=== PATIENT | male | born 1955 | race Hispanic/Latino ===

== ENCOUNTER 2025-02-13 06:51 | Observation (INO) | payer OTHER ==
[~2025-02-13] VITALS: Ht 175.3 cm; Wt 154.0 kg
[~2025-02-13 06:51] MED LIST: HYDR25TA PO; METO-409 PO; ROSU20TA23 PO
[2025-02-13] MEDS: furoSEMIDE 40MG VIAL IV ONE (07:49)
--- NOTE | 2025-02-13 07:54 | EKG ---
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
[2025-02-13 08:05] LABS: BASOPHILS # (AUTO) 0.07 K/uL (0.00-0.20); BASOPHILS % (AUTO) 0.6 % (0.0-5.0); EOSINOPHILS # (AUTO) 0.22 K/uL (0.00-0.70); HEMATOCRIT 45.6 % (42-54); IMMATURE GRANULOCYTE ABSOLUTE 0.06 K/uL (0-1); LYMPHOCYTES # (AUTO) 2.3 K/uL (1.0-4.8); LYMPHOCYTES % (AUTO) 20.7 % (21.0-51.0); MEAN CORPUSCULAR HEMOGLOBIN 27.3 pg (27.0-33.0); MEAN CORPUSCULAR HGB CONC 31.8 g/dL (32.0-36.0); MEAN CORPUSCULAR VOLUME 85.7 fL (79-99); MONOCYTES # (AUTO) 0.6 K/uL (0.1-1.0); MONOCYTES % (AUTO) 5.3 % (3.0-13.0); NEUTROPHILS % (AUTO) 70.9 % (40.0-77.0); PLATELET COUNT (AUTO) 173 K/uL (130-400); RED BLOOD CELL COUNT(AUTO) 5.32 MIL/uL (4.50-6.20); RED CELL DISTRIBUTION WIDTH 13.3 % (11.0-15.5); WHITE BLOOD COUNT (AUTO) 11.2 K/uL (4.8-10.8)
[2025-02-13 08:24] LABS: CREATININE 0.9 mg/dL (0.5-1.3); POTASSIUM 3.8 mmol/L (3.5-5.1)
[2025-02-13 08:27] LABS: B-TYPE NATRIURETIC PEPTIDE 24 pg/mL (0-100)
[2025-02-13 08:28] LABS: ALBUMIN 3.3 g/dL (3.5-5.0); BILIRUBIN,DIRECT 0.1 mg/dL (0.0-0.3); BILIRUBIN,TOTAL 0.3 mg/dL (0.2-1.0); TOTAL PROTEIN, SERUM 7.5 g/dL (6.0-8.3)
--- NOTE | 2025-02-13 09:12 | HMCIMG ---
Exam Type: CHEST 1VW Clinical Information: cp Comparison: None Findings: The lungs are clear of infiltrates. The heart is normal in size. The bony and soft tissue structures of the chest are unremarkable. Impression: Clear lungs.
--- NOTE | 2025-02-13 10:11 | HMCIMG ---
Exam Type: US VENOUS DOPPLER BILATERAL Clinical Information: r/o DVT Comparison: None Findings: The examination shows normal deep venous system. There is normal compressibility at all levels. There is no intraluminal clot. There is no occlusion. Adequate response is obtained on augmentation. Impression: No evidence of DVT.
--- NOTE | 2025-02-13 11:22 | ERN ---
ED Note History of Present Illness Stated Complaint: SOB,CP Chief Complaint: Shortness of Breath Time Seen by MD: 07:18 Dictation: 69-year-old male presenting to the emergency department with chest pain and shortness a breath over the past few days. Patient reports chronic history of lower extremity swelling but it has been worsening. Allergies: Coded Allergies: No Known Drug Allergies (Unverified Allergy, Unknown, 06/24/15) Home Meds Reported Medications Hydrochlorothiazide (Hydrochlorothiazide) 25 Mg Tablet, 25 MG PO AM, TAB 06/24/15 Metoprolol Succinate (Metoprolol Succinate) 100 Mg Tab.er.24h, 100 MG PO AM, TAB 06/24/15 Rosuvastatin Calcium (Crestor) 20 Mg Tablet, 20 MG PO AM, TAB 06/24/15 Past Medical History Past Medical History: High Cholesterol, Hypertension Surgical History: Other Surgical History Other: HERNIA REPAIR Review of System Dictation Constitutional: Negative for fever,chills, and weight loss Eyes: Negative for injury, pain,redness, and discharge ENT: Negative for injury,pain or swelling Cardiovascular:per HPI Respiratory: per HPi Abdomen/GI: Negative for abdominal pain, nausea, vomiting, diarrhea, and constipation Back: Negative for injury and pain : Negative for injury, bleeding and discharge MS/Extremity: Negative for injury and deformity Skin: Negative for rash, and discoloration Neuro: Negative for headache, weakness, numbness, tingling, and seizure Initial Vital Sign VS Vital Signs Date Time Temp Pulse Resp B/P (MAP) Pulse Ox O2 Delivery O2 Flow Rate FiO2 02/13/25 06:53 98.4 88 20 180/85 97 Room Air 02/13/25 07:10 0 21 Physical Exam Dictation General: awake, alert, NAD Head/Face: Normocephalic, atraumatic Eyes: PERRL, EOMI, vision at baseline ENT: oral cavity clear, TMs clear, no signs of infection Neck: Trachea midline, supple, no nuchal rigidity Cardiovascular: RRR, normal S1/S2, No MRGs, no JVD, bilateral pitting edema noted to lower extremity Respiratory: CTAB, no respiratory distress, No rales or wheezes Abdomen: Soft, non-tender, non-distended, normal bowel sounds, no guarding or rebound. Skin: Warm, dry, normal turgor, no rash MS/Extremity: Pulses equal, no cyanosis, neurovascular intact, FROM Neuro: COAx4, GCS 15, strength 5/5, CN 2-12 intact, normal cerebellar exam, normal gait, Psych: Normal behavior, mood, and affect normal Results (Laboratory/Radiology) Laboratory/Radiology Laboratory Tests Test 02/13/25 07:45 White Blood Count 11.2 K/uL (4.8-10.8) H Red Blood Count 5.32 MIL/uL (4.50-6.20) Hemoglobin 14.5 g/dL (14.0-18.0) Hematocrit 45.6 % (42-54) Mean Corpuscular Volume 85.7 fL (79-99) Mean Corpuscular Hemoglobin 27.3 pg (27.0-33.0) Mean Corpuscular Hemoglobin Concent 31.8 g/dL (32.0-36.0) L Red Cell Distribution Width 13.3 % (11.0-15.5) Platelet Count 173 K/uL (130-400) Mean Platelet Volume 10.9 fL (7.5-10.5) H Immature Granulocyte % (Auto) 0.5 % (0-1) Neutrophils (%) (Auto) 70.9 % (40.0-77.0) Lymphocytes (%) (Auto) 20.7 % (21.0-51.0) L Monocytes (%) (Auto) 5.3 % (3.0-13.0) Eosinophils (%) (Auto) 2.0 % (0.0-8.0) Basophils (%) (Auto) 0.6 % (0.0-5.0) Neutrophils # (Auto) 8.0 K/uL (1.8-7.7) H Lymphocytes # (Auto) 2.3 K/uL (1.0-4.8) Monocytes # (Auto) 0.6 K/uL (0.1-1.0) Eosinophils # (Auto) 0.22 K/uL (0.00-0.70) Basophils # (Auto) 0.07 K/uL (0.00-0.20) Absolute Immature Granulocyte (auto 0.06 K/uL (0-1) Nucleated Red Blood Cells 0.0 % (0.0-0.19) Sodium Level 142 mmol/L (136-145) Potassium Level 3.8 mmol/L (3.5-5.1) Chloride Level 105 mmol/L (101-111) Carbon Dioxide Level 31 mmol/L (21-32) Blood Urea Nitrogen 14 mg/dL (7-18) Creatinine 0.9 mg/dL (0.5-1.3) Glomerular Filtration Rate Calc 94 mL/min (>90) Random Glucose 111 mg/dL (70-105) H Total Calcium 8.5 mg/dL (8.5-10.1) Total Bilirubin 0.3 mg/dL (0.2-1.0) Direct Bilirubin 0.1 mg/dL (0.0-0.3) Aspartate Amino Transf (AST/SGOT) 12 U/L (10-37) Alanine Aminotransferase (ALT/SGPT) 35 U/L (12-78) Alkaline Phosphatase 86 U/L (50-136) Troponin I High Sensitivity 6 ng/L (4-75) B-Type Natriuretic Peptide 24 pg/mL (0-100) Total Protein 7.5 g/dL (6.0-8.3) Albumin 3.3 g/dL (3.5-5.0) L Labs Reviewed?: Yes EKG Comment: Heart rate 82 normal sinus rhythm normal intervals no STEMI ED Course ED Course Orders Procedure Category Date Status Time 12 Lead Ekg Tracing- EKG 02/13/25 Resulted Technical 07:19 B-Type Natriuretic LAB 02/13/25 Complete Peptide 07:19 Basic Metabolic Panel LAB 02/13/25 Complete 07:19 Cbc With Differential LAB 02/13/25 Complete 07:19 Hepatic Function Panel LAB 02/13/25 Complete 07:19 Troponin I High LAB 02/13/25 Complete Sensitivity 07:19 Chest 1vw RAD 02/13/25 Resulted 07:19 Furosemide 40mg Vial PHA 02/13/25 Complete (Lasix 40mg Vial) 08:00 Us Venous Doppler US 02/13/25 Resulted Bilateral 07:36 Current Medications Medications (Trade) Dose Ordered Sig/Kaycee Route PRN Reason Start Time Stop Time Status Last Admin Dose Admin Furosemide (LASix 40MG VIAL) 40 mg ONCE ONCE IV 02/13/25 08:00 02/13/25 08:01 DC 02/13/25 07:49 Vital Signs Date Time Temp Pulse Resp B/P (MAP) Pulse Ox O2 Delivery O2 Flow Rate FiO2 02/13/25 08:15 98.6 84 18 144/92 97 Room Air* 0 21 02/13/25 07:10 98.6 81 18 163/103 98 Room Air* 0 21 02/13/25 06:53 98.4 88 20 180/85 97 Room Air HEART Score Response (Comments) Value History: High suspicion (+2) 2 Total 2 Medical Decision Making MDM MDM: Differential diagnosis: Rationale: Tests considered and ordered secondary to shared decision making include: labs, ECG and radiology Previous outside records reviewed: Old ER visits. Risk of complication and/or morbidity or mortality of patient management: None Medications-Per medication reconciliation Need for hospitalization: Patient does meet criteria for hospitalization. Need for emergency major/minor surgery: No There are no social concerns with this patient. Prescription drug management Prescriptions will include symptomatic care Patient's prior external medical records from other ER visits were reviewed by me as indicated. Prior testing and results from previous visits were reviewed. Prior tests were taken into account with medical decision making and resource utilization, independent historian/historians were used to obtain complete medical history. I independently interpreted the test that were performed, results were reviewed by me and considered findings on radiology if ordered. Medical management and examination interpretation discussions were had by me with other qualified healthcare professionals as indicated for the patient's care. 69-year-old male with CHF exacerbation concern for chest pain onset while angina admitting for further care and evaluation. DX & DISP Disposition: Inpatient Departure Impression: Primary Impression: CHF (congestive heart failure) Additional Impression: Unstable angina Condition: Stable Referrals: JONATHON FRAGA MD (PCP) NGOZI STEVE MD Feb 13, 2025 11:22
[2025-02-13] MEDS ORDERED: AMLO1CAP6 PO (11:53)
[2025-02-13] MEDS ORDERED: FURO20TA4 PO (11:53)
--- NOTE | 2025-02-13 11:59 | HP ---
[facility] Date of Service: Feb 13, 2025 Time of Service: 11:59 HISTORY OF PRESENT ILLNESS: Date of service: 02/13/2025, patient was seen in ER room 20 This is a 69-year-old male with underlying history of hypertension, chronic lower extremity edema, hyperlipidemia, severe morbid obesity, history of untreated sleep apnea, who presented to the ER after acute onset of shortness of breath. Patient states that he was sleeping in his recliner when he suddenly woke up gasping for air and it lasted for about a minute. Patient and also noticed that he has been having sharp left-sided chest pain that lasts for several seconds and goes away for about a week. It has been happening every 1-2 days. Patient states that he previously has seen Dr. Moreno with Cardiology 4 years ago and was recommended to have a stress test. Patient states that he did not undergo stress test due to financial reasons. Reports having be told he has sleep apnea but did not want to use CPAP machine and this was about four years ago. Daughter, present at bedside states that patient does have history of frequent snoring. Patient recently retired and has been mostly sedentary at home. Denies any previous history of NV or pulmonary comorbidities. Denies any significant alcohol intake or significant smoking. Labs [place] [address], hemoglobin 14.5, platelet count of 240065. BMP remarkable for sodium of 142, potassium 3.8, CO2 of 31, BUN of 14 , creatinine of 0.9, troponin of six, BNP of 24. Chest x-ray showed no significant infiltrates. Patient did receive IV dose of Lasix in the ER. Patient will be admitted for further evaluation of atypical chest pain. He will also undergo further evaluation of the shortness of breath. Consultation with Cardiology and pulmonology will be requested. One of the component of shortness of breadth can be also from untreated sleep apnea. Discussed with patient to see if he can get outpatient sleep study for CPAP therapy. Patient is morbidly obese and has multiple risk factors for coronary artery disease. We will also have Cardiology follow up. REVIEW OF SYSTEMS CONSTITUTIONAL: Denies fevers, chills, or night sweats. No unintentional weight loss reported. NEUROLOGICAL: Denies headache, amaurosis fugax, motor weakness, sensory deficit, vertigo/spinning sensation, gait abnormalities, or tremors. ENT: No hearing loss, otalgia, otorrhea, rhinitis, rhinorrhea, hoarseness, or sore throat. CARDIOVASCULAR: Sudden onset of shortness of breadth today, reports having sedentary lifestyle, add sharp chest pain for about a week that lasts for several seconds PULMONARY: Denies any shortness of breath, cough, phlegm/sputum, hemoptysis, pleuritic chest pain. SLEEP: Denies morning headaches, daytime somnolence or napping. Denies difficulty falling asleep, staying asleep, waking from sleep. Denies knowledge of snoring. GASTROINTESTINAL: Denies any type of dysphagia to either liquids or solids. Denies nausea, vomiting, pyrosis, early satiety, abdominal pain, diarrhea, constipation, or changes in stool consistency or caliber. Denies coffee-ground emesis, hematemesis, hematochezia, or melanotic stools. GENITOURINARY: Denies frequency, urgency, nocturia, hematuria or incontinence (Storage/Irritative symptoms.) Low urinary stream, straining to void, urinary intermittency or hesitancy, splitting of the voiding stream, terminal dribbling. ENDOCRINOLOGIC: Denies polyuria, polydipsia, polyphagia or heat/cold intolerances. HEMATOLOGIC: Denies thrombophilia/previous clots, or coagulopathy/bleeding disorders. ONCOLOGIC: Denies personal history of malignancy. DERMATOLOGIC: Denies rashes or pruritus. PSYCHIATRIC: Denies any suicidal or homicidal ideation. Denies hallucinations. PAST MEDICAL HISTORY: Obesity, untreated sleep apnea, hypertension, hyperlipidemia PAST SURGICAL HISTORY: Previous history of umbilical hernia surgery PAST SOCIAL HISTORY: Patient is currently retired, denies active smoking or alcohol consumption FAMILY HISTORY: Family history of NV in father at the age of 65 Coded Allergies: No Known Drug Allergies (Unverified Allergy, Unknown, 06/24/15) PHYSICAL EXAM GENERAL APPEARANCE: The patient is awake, alert, and oriented, in no acute cardiopulmonary distress. NEUROLOGICAL: Cranial nerves II-XII grossly intact. Motor is 5/5 in bilateral upper and lower extremities proximal to distal. No sensory deficits. HEENT: Face is symmetric. Pupils are equal and reactive. Extraocular movements are intact. NECK: Supple. No JVD. No thyromegaly. No submental, submandibular, pre-/postauricular, occipital or supraclavicular lymphadenopathy. CHEST: Normal chest expansion. No Telemetry. LUNGS: Absence of any rales, rhonchi or any wheezing. CARDIOVASCULAR: Regular. S1 and S2 normal. No appreciable rubs, murmurs or gallops. ABDOMEN: Soft, nontender, and nondistended. There is no rebound, voluntary guarding, or rigidity. : Deferred. No Knott. EXTREMITIES: Non-edematous and not cyanotic. No clubbing. Good capillary refill. SKIN: No skin breakdown. Vital Sign (Last 24 Hours) 02/13/25 08:15 Temp 98.6 Pulse 84 Resp 18 B/P (MAP) 144/92 Pulse Ox 97 O2 Delivery Room Air* O2 Flow Rate 0 FiO2 21 LABS: Laboratory: Test 02/13/25 07:45 Range/Units White Blood Count 11.2 H 4.8-10.8 K/uL Red Blood Count 5.32 4.50-6.20 MIL/uL Hemoglobin 14.5 14.0-18.0 g/dL Hematocrit 45.6 42-54 % Mean Corpuscular Volume 85.7 79-99 fL Mean Corpuscular Hemoglobin 27.3 27.0-33.0 pg Mean Corpuscular Hemoglobin Concent 31.8 L 32.0-36.0 g/dL Red Cell Distribution Width 13.3 11.0-15.5 % Platelet Count 173 130-400 K/uL Mean Platelet Volume 10.9 H 7.5-10.5 fL Immature Granulocyte % (Auto) 0.5 0-1 % Neutrophils (%) (Auto) 70.9 40.0-77.0 % Lymphocytes (%) (Auto) 20.7 L 21.0-51.0 % Monocytes (%) (Auto) 5.3 3.0-13.0 % Eosinophils (%) (Auto) 2.0 0.0-8.0 % Basophils (%) (Auto) 0.6 0.0-5.0 % Neutrophils # (Auto) 8.0 H 1.8-7.7 K/uL Lymphocytes # (Auto) 2.3 1.0-4.8 K/uL Monocytes # (Auto) 0.6 0.1-1.0 K/uL Eosinophils # (Auto) 0.22 0.00-0.70 K/uL Basophils # (Auto) 0.07 0.00-0.20 K/uL Absolute Immature Granulocyte (auto 0.06 0-1 K/uL Nucleated Red Blood Cells 0.0 0.0-0.19 % Sodium Level 142 136-145 mmol/L Potassium Level 3.8 3.5-5.1 mmol/L Chloride Level 105 101-111 mmol/L Carbon Dioxide Level 31 21-32 mmol/L Blood Urea Nitrogen 14 7-18 mg/dL Creatinine 0.9 0.5-1.3 mg/dL Glomerular Filtration Rate Calc 94 >90 mL/min Random Glucose 111 H 70-105 mg/dL Total Calcium 8.5 8.5-10.1 mg/dL Total Bilirubin 0.3 0.2-1.0 mg/dL Direct Bilirubin 0.1 0.0-0.3 mg/dL Aspartate Amino Transf (AST/SGOT) 12 10-37 U/L Alanine Aminotransferase (ALT/SGPT) 35 12-78 U/L Alkaline Phosphatase 86 50-136 U/L Troponin I High Sensitivity 6 4-75 ng/L B-Type Natriuretic Peptide 24 0-100 pg/mL Total Protein 7.5 6.0-8.3 g/dL Albumin 3.3 L 3.5-5.0 g/dL Current Medications Medications (Trade) Dose Ordered Sig/Kaycee Route PRN Reason Start Time Stop Time Status Last Admin Dose Admin Acetaminophen (TYLenol 325MG TAB) 650 mg Q6H PRN PO MILD PAIN (1-3) 02/13/25 12:00 03/15/25 11:59 UNV Budesonide (Pulmicort 0.5 Mg/2ml) 0.5 mg BIDRESP IH 02/13/25 18:00 03/15/25 17:59 UNV Budesonide (Pulmicort 0.5 Mg/2ml) 0.5 mg BIDRESP IH 02/13/25 18:00 03/15/25 17:59 UNV Ipratropium Wadley (AtrovENT UD) 0.5 mg Q6H PRN IH SHORTNESS OF BREATH 02/13/25 12:00 03/15/25 11:59 UNV Ondansetron HCl (zoFRAN 4MG INJ) 4 mg Q6H PRN IVP NAUSEA/VOMITING 02/13/25 12:00 03/15/25 11:59 UNV Potassium Chloride 100 ml @ 100 mls/hr AD PRN IV POTASSIUM PROTOCOL 02/13/25 12:00 03/15/25 11:59 UNV Potassium Chloride (K-Dur/Klor-Con 20meq) 20 meq AD PRN PO POTASSIUM PROTOCOL 02/13/25 12:00 03/15/25 11:59 UNV Potassium Chloride (KCl 10% Elixir 20meq/15ml) 20 meq AD PRN PO POTASSIUM PROTOCOL 02/13/25 12:00 03/15/25 11:59 UNV DIAGNOSTICS / RADIOLOGY: SERVICE [id number] REASON: cp ORDERING PHYSICIAN: NGOZI STEVE MD PROCEDURE: CXR1VW - CHEST 1VW Exam Type: CHEST 1VW Clinical Information: cp Comparison: None Findings: The lungs are clear of infiltrates. The heart is normal in size. The bony and soft tissue structures of the chest are unremarkable. Impression: Clear lungs. DICTATED BY: JANN CAI MD DATE: 02/13/25 0909 ELECTRONICALLY SIGNED BY: JANN CAI MD DATE: 02/13/25 0912 SERVICE [id number] REASON: r/o DVT ORDERING PHYSICIAN: NGOZI STEVE MD PROCEDURE: VENOUS ARIANA - US VENOUS DOPPLER BILATERAL Exam Type: US VENOUS DOPPLER BILATERAL Clinical Information: r/o DVT Comparison: None Findings: The examination shows normal deep venous system. There is normal compressibility at all levels. There is no intraluminal clot. There is no occlusion. Adequate response is obtained on augmentation. Impression: No evidence of DVT. DICTATED BY: JANN CAI MD DATE: 02/13/25 1008 ELECTRONICALLY SIGNED BY: JANN CAI MD DATE: 02/13/25 1011 ASSESSMENT: Atypical chest pain, POA Sudden onset shortness of breath, POA Untreated obstructive sleep apnea with episodes of apnea, POA Morbid obesity, POA Hypertension, POA Hyperlipidemia, POA Mild leukocytosis, POA Bilateral chronic lower extremity edema, POA PLAN: Patient will be admitted to cardiac telemetry floor We will monitor cardiac panel to rule out ACS Consultation with Cardiology will be requested Consultation with pulmonology will be requested, patient has uncontrolled sleep apnea with apneic episodes as well, we will consider starting CPAP therapy while inpatient We will obtain 2D echocardiogram to assess LVEF, patient has a history of chronic lower extremity edema, he received a dose of IV Lasix in the ER, we will rule out heart failure and any significant cardiac valvulopathy We will obtain D-dimer testing to assess probability of PE, if significantly elevated, will consider CT PE as well, will have Pulmonology follow up Patient does take amlodipine at home which can cause chronic lower extremity edema, we will stop the amlodipine for now, we will keep patient on benazepril 20 mg daily We will maintain potassium greater than four and magnesium greater than two All labs will be repeated in the morning I have spoken with Dr. Moreno with Cardiology in detail, recommendations is to do a stress test for tomorrow morning, he also recommends CT PE protocol to rule out PE given underlying obesity and lower extremity edema and mildly elevated D- dimer, orders have been placed by me Patient will need to be setup for outpatient sleep study for evaluation and management of sleep apnea Plan of care was discussed with patient and daughter at bedside, Cornell Burkett MD Advanced Care Planning: Which of the following were discussed: Hospice care: Yes __ No _X_ Therapeutic options: Yes _X_ No __ Advance directives: Yes _X_ No __ Other discussions: Discussed with who?: Patient Voluntary nature of this service was explained to the patient? Yes _x_ No __ Amount of time spent: 20 minutes CORNELL BURKETT MD Feb 13, 2025 11:59
[2025-02-13] MEDS ORDERED: IpraTROPium 0.5 MG/2.5 ML INH IH PRN (12:00)
[2025-02-13] MEDS ORDERED: PoTASSium chloRIDE 20MEQ/100ML 100 ML IV PRN (12:00)
[2025-02-13] MEDS ORDERED: PoTASSium chl 10% ELIXIR 20MEQ 20 MEQ/15 ML UDCUP PO PRN (12:00)
[2025-02-13] MEDS ORDERED: PoTASSium chloRIDE 20MEQ ER 20 MEQ ERTAB PO PRN (12:00)
[2025-02-13] MEDS ORDERED: acetaMINOPHEN 325 MG TAB PO PRN (12:00)
[2025-02-13] MEDS ORDERED: ondanSETRON 4MG INJ IVP PRN (12:00)
[2025-02-13 12:45] LABS: INR 0.99 (0.85-1.15); PROTHROMBIN TIME 10.5 SEC (9.6-11.6)
[2025-02-13 12:45] LABS: SARS-CoV-2, RNA, NAAT NEGATIVE SARS CoV-2 (NEGATIVE)
[2025-02-13 12:47] LABS: PARTIAL THROMBOPLASTIN TIME 27.2 SEC (26.3-35.5)
[2025-02-13 12:52] LABS: INFLUENZA TYPE A Negative For Type A (NEGATIVE); INFLUENZA TYPE B Negative For Type B (NEGATIVE)
[2025-02-13] MEDS: beNAZEPril HCL 10 MG TABLET PO SCH (13:42)
[2025-02-13 14:02] LABS: CREATINE KINASE, TOTAL 223 U/L (21-232)
[2025-02-13 14:29] VITALS: PULSE 86; RESP 18; O2SAT 98
--- NOTE | 2025-02-13 14:52 | NUR ---
DCP: HOME Pt currently lives with Fany Weaver [phone]. Pt does not have any insecurities with food, mcfp, and/or utilities. Pt does not have DME, home health, or provider services. Pt is able to complete ADLs independently. PCP is Dr. Bola Castro and uses [facility] with any RX needs. At [place] pt will go home and family will assist with transportation. Addendum: 02/13/25 at 1455 by DK FRENCH SS Amended: Links added.
[2025-02-13] MEDS ORDERED: BUDESONIDE 0.5 MG/2 ML INH IH SCH (18:00)
[2025-02-13 19:55] VITALS: PULSE 90; RESP 20; O2SAT 98
[2025-02-13] MEDS: BUDESONIDE 0.5 MG/2 ML INH IH SCH (19:55)
[2025-02-13] MEDS: atorVAStatin 40 MG TABLET PO SCH (19:58)
[2025-02-13] MEDS ORDERED: IOHEXOL-350 75 ML VIAL IV ONE (20:16)
--- NOTE | 2025-02-13 20:18 | NUR ---
Pt to CT via wheelchair at this time on room air.
--- NOTE | 2025-02-13 20:40 | NUR ---
Handoff report to [facility] RN Eva. Plan of care reviewed; questions and concerns addressed.
--- NOTE | 2025-02-13 20:41 | HMCIMG ---
CT angiogram chest CLINICAL INDICATION: ELEVATED D-DIMER SOB, AND ATYPICAL CHEST PAIN X 1 WEEK COMPARISON: None. CT Dose Index (CTDI): 113.50 mGy Dose Length Product (DLP): 1408.10 total mGy PROTOCOL: Contrast: 100 cc of Isovue-370, injected IV, no complications Examination is done at 2.5 millimeter volumetric acquisition after contrast administration. Photography is done at 5 millimeter thick intervals for the thorax. FINDINGS: There is no evidence of pulmonary embolism. The airway is intact. The trachea and major bronchi are unremarkable. No pulmonary infiltrates or mass lesions are seen. No pleural effusions are identified. The exam of the katalina and mediastinum is unremarkable. No evidence of hilar enlargement is seen. The aorta shows no aneurysmal dilatation or significant atheromatous calcification. There is no thoracic aortic dissection. No significant brachiocephalic vascular abnormalities are seen. The heart is unremarkable. It is not enlarged. No significant coronary arterial calcifications are seen. There is no pericardial effusion. The rib cage appears unremarkable. The soft tissues of the chest wall are unremarkable. The dorsal spine shows no significant abnormalities. Limited evaluation of the upper abdomen demonstrates no gross abnormalities. IMPRESSION: No evidence of pulmonary embolism. Clear lungs. This study was performed using dose reduction techniques to include automated exposure control and/or adjustment of the mA and/or kV according to patient size.
--- NOTE | 2025-02-13 21:00 | CONS ---
[facility] CONSULTATION NOTE Date Patient Seen: Feb 13, 2025 Time of Visit: 20:54 Supervising Physician: Dr. Akers Reason for Consultation: Untreated JOSELUIS/OHS. Primary Care Physician: Dr. Bola Castro Outpatient Specialists: [ ] Inpatient Consults: [ ] PROBLEM LIST: Acute onset respiratory failure, POA Elevated D-dimer r/o PE Atypical chest pain, POA Untreated obstructive sleep apnea/obesity hypoventilation syndrome with episodes of apnea, POA Hypertension, POA Hyperlipidemia, POA Mild leukocytosis, POA Bilateral chronic lower extremity edema, POA Morbid obesity, POA] HPI: This is a 69-year-old male patient who has past medical history that is sig nificant for hypertension, chronic lower extremity edema, hyperlipidemia, severe morbid obesity and untreated sleep apnea. The patient presented to the emergency department with complaint of shortness of bed. With sudden onset last night. Based on the report, the patient was sleeping in his recliner when he suddenly woke up gasping for air and then had difficulty returning to sleep. He also complaint of chest pain that has been off and on over the past week. Because of the sudden onset shortness of breath and chest pain, the patient decided to come into the emergency department for further evaluation and management of his condition. Upon initial workup in the emergency department, laboratory [place] [address], hemoglobin 14.5, platelet count of [id number], sodium of 142, potassium 3.8, CO2 of 31, BUN of 14 , creatinine of 0.9, troponin of six, BNP of 24. D-dimer 536, no coagulopathy. Influenza A&B and SARS-CoV-2 were negative. Chest x-ray showed no significant infiltrates. In the emergency department, the patient was treated with IV Lasix and based on the findings the patient was admitted for further inpatient evaluation and management of his condition. At the time of my visit, the patient remained in the emergency department awaiting bed assignment. During my visit, the senior technical writer was present at the bedside performing the study. PAST MEDICAL HX: see above PAST SURGICAL HX: noncontributory SOCIAL HISTORY: No tobacco, ETOH, or illicit drug use Coded Allergies: No Known Drug Allergies (Unverified Allergy, Unknown, 06/24/15) REVIEW OF SYSTEMS: 12 point ROS reviewed with patient. Pertinent positives mentioned above. Otherwise negative. PHYSICAL EXAM: GENERAL: Alert, weak, awake oriented x 3. Morbidly obese HEENT: EOMI, Sclera non icteric, moist mucosa NECK: Supple, no JVD, trachea midline LUNGS: Clear breath sounds bilaterally. No wheezes HEART: Regular rate and rhythm. Normal S1 and S2, without murmurs ABD: Abdomen soft, nontender. Bowel sounds present EXT: No clubbing cyanosis or edema NEURO: Alert and oriented to person, follows commands Vital Signs (last 8hr) Date Time Temp Pulse Resp B/P (MAP) Pulse Ox O2 Delivery O2 Flow Rate FiO2 02/13/25 20:19 98.8 91 16 157/82 96 Room Air* 0 21 02/13/25 19:55 90 20 02/13/25 19:55 90 20 N/A Room Air 02/13/25 14:30 98.2 79 18 128/79 97 Room Air* 0 21 02/13/25 14:29 86 18 N/A Room Air 02/13/25 13:15 98.2 85 18 157/77 97 Room Air* 0 21 LABS: Hematology Labs: Test 02/13/25 18:14 02/13/25 07:45 Range/Units Erythrocyte Sedimentation Rate 18 0-20 MM/HR White Blood Count 11.2 H 4.8-10.8 K/uL Red Blood Count 5.32 4.50-6.20 MIL/uL Hemoglobin 14.5 14.0-18.0 g/dL Hematocrit 45.6 42-54 % Mean Corpuscular Volume 85.7 79-99 fL Mean Corpuscular Hemoglobin 27.3 27.0-33.0 pg Mean Corpuscular Hemoglobin Concent 31.8 L 32.0-36.0 g/dL Red Cell Distribution Width 13.3 11.0-15.5 % Platelet Count 173 130-400 K/uL Mean Platelet Volume 10.9 H 7.5-10.5 fL Immature Granulocyte % (Auto) 0.5 0-1 % Neutrophils (%) (Auto) 70.9 40.0-77.0 % Lymphocytes (%) (Auto) 20.7 L 21.0-51.0 % Monocytes (%) (Auto) 5.3 3.0-13.0 % Eosinophils (%) (Auto) 2.0 0.0-8.0 % Basophils (%) (Auto) 0.6 0.0-5.0 % Neutrophils # (Auto) 8.0 H 1.8-7.7 K/uL Lymphocytes # (Auto) 2.3 1.0-4.8 K/uL Monocytes # (Auto) 0.6 0.1-1.0 K/uL Eosinophils # (Auto) 0.22 0.00-0.70 K/uL Basophils # (Auto) 0.07 0.00-0.20 K/uL Absolute Immature Granulocyte (auto 0.06 0-1 K/uL Nucleated Red Blood Cells 0.0 0.0-0.19 % Chemistry Labs: Test 02/13/25 18:14 02/13/25 07:45 Range/Units Total Creatine Kinase 112 # 21-232 U/L Troponin I High Sensitivity 5.2 4-75 ng/L C-Reactive Protein, Quantitative 6.10 H 0.5-3.0 mg/L Procalcitonin < 0.05 L 0.05-0.5 ng/mL Sodium Level 142 136-145 mmol/L Potassium Level 3.8 3.5-5.1 mmol/L Chloride Level 105 101-111 mmol/L Carbon Dioxide Level 31 21-32 mmol/L Blood Urea Nitrogen 14 7-18 mg/dL Creatinine 0.9 0.5-1.3 mg/dL Glomerular Filtration Rate Calc 94 >90 mL/min Random Glucose 111 H 70-105 mg/dL Total Calcium 8.5 8.5-10.1 mg/dL Magnesium Level 2.10 1.80-2.40 mg/dL Total Bilirubin 0.3 0.2-1.0 mg/dL Direct Bilirubin 0.1 0.0-0.3 mg/dL Aspartate Amino Transf (AST/SGOT) 12 10-37 U/L Alanine Aminotransferase (ALT/SGPT) 35 12-78 U/L Alkaline Phosphatase 86 50-136 U/L B-Type Natriuretic Peptide 24 0-100 pg/mL Total Protein 7.5 6.0-8.3 g/dL Albumin 3.3 L 3.5-5.0 g/dL Coagulation Labs: Test 02/13/25 07:45 Range/Units Prothrombin Time 10.5 9.6-11.6 SEC Prothromb Time International Ratio 0.99 0.85-1.15 Activated Partial Thromboplast Time 27.2 26.3-35.5 SEC D-Dimer Quantitative (PE/DVT) 536 *H 0-500 ng/mL DIAGNOSTICS / RADIOLOGY RESULTS: [ ] PLAN Pulmonology consultation was requested due to concern for untreated JOSELUIS/OHS. I am going to start the patient on CPAP at HS with inspiratory pressure 10 cm H2O and 40% FiO2. Because of the sudden onset respiratory distress and a minimally elevated D-dimer, we will request a CT of the chest PE protocol if not yet requested. We will await the 2D echo results. Cardiology was consulted and we will follow their input on further management. We will monitor the patient's progress and response to management. I discussed the findings and plan for further management with the patient. We will monitor the patient's progress and response to management. We will continue to provide general supportive care, GI and DVT prophylaxis. I appreciate the opportunity provided to participate in patient's care. Further orders per attending MD and hospital course. NEURO: Minimize central acting medications as possible. Maintain fall precautions, adequate lighting during the day PULMONARY: Supplemental 02 as needed. Maintain aspiration precautions at all times CARDIOVASCULAR: Follow hemodynamics. Vital signs per facility protocol GI & NUTRITION: Continue with nutritional support. Continue stool softeners and laxatives as needed. KIDNEYS & ELECTROLYTES: Strict monitoring of intake, output and overall fluid balance. Avoid nephrotoxic medications to the extent possible. Medications to be dosed according to renal function. Monitor electrolytes and replace as needed ENDOCRINE: Maintain blood glucose between 100-180 at all times. Hypoglycemia protocol in place INFECTIOUS DISEASE: Trend temperature, WBC and procalcitonin level Follow cultures, deescalate antibiotics as soon as possible. Panculture if new onset fever ONCOLOGY/HEMATOLOGY/COAGULATION: Monitor for s/s of bleeding Monitor hemoglobin, coagulation studies as needed SKIN: Pressure ulcer prevention per facility protocol Specialty mattress ORTHO/REHAB: Continue PT/OT Prophylaxis: Continue GI and DVT prophylaxis Code Status: Full Resuscitation Disposition: TBD Other: Patient was seen and case discussed with kenney HECTOR. Plan of care was discussed and agreed upon. SALLY GARCIA NP Feb 13, 2025 21:00
[2025-02-13 21:34] VITALS: BP 149/76; PULSE 90; RESP 20; TEMP 98.4
[2025-02-13 23:24] VITALS: O2SAT 97
[2025-02-13 23:30] VITALS: BP 168/73; PULSE 85; RESP 18; TEMP 98.4
[2025-02-14] VITALS (16 sets, daily range): BP systolic 132–152; BP diastolic 69–85; PULSE 50–91; RESP 16–24; TEMP 97.4–98.2; O2SAT 96–100
[2025-02-14 04:27] LABS: BASOPHILS # (AUTO) 0.09 K/uL (0.00-0.20); BASOPHILS % (AUTO) 0.7 % (0.0-5.0); EOSINOPHILS % (AUTO) 2.4 % (0.0-8.0); IMMATURE GRANULOCYTE ABSOLUTE 0.06 K/uL (0-1); LYMPHOCYTES # (AUTO) 2.5 K/uL (1.0-4.8); LYMPHOCYTES % (AUTO) 19.8 % (21.0-51.0); MEAN CORPUSCULAR HGB CONC 31.1 g/dL (32.0-36.0); MEAN CORPUSCULAR VOLUME 86.9 fL (79-99); MONOCYTES # (AUTO) 0.8 K/uL (0.1-1.0); MONOCYTES % (AUTO) 6.2 % (3.0-13.0); NEUTROPHILS # (AUTO) 8.7 K/uL (1.8-7.7); NEUTROPHILS % (AUTO) 70.4 % (40.0-77.0); PLATELET COUNT (AUTO) 172 K/uL (130-400); RED BLOOD CELL COUNT(AUTO) 5.18 MIL/uL (4.50-6.20); RED CELL DISTRIBUTION WIDTH 13.3 % (11.0-15.5); WHITE BLOOD COUNT (AUTO) 12.4 K/uL (4.8-10.8)
[2025-02-14 04:49] LABS: ALBUMIN 3.3 g/dL (3.5-5.0); BILIRUBIN,TOTAL 0.4 mg/dL (0.2-1.0); CREATININE 0.9 mg/dL (0.5-1.3); MAGNESIUM 2.2 mg/dL (1.80-2.40); POTASSIUM 3.8 mmol/L (3.5-5.1); TOTAL PROTEIN, SERUM 7.4 g/dL (6.0-8.3)
--- NOTE | 2025-02-14 10:40 | PN ---
[facility] PROGRESS NOTE Date of Service: Feb 14, 2025 Time of Service: 10:36 SUBJECTIVE: This is a 69-year-old male with underlying history of hypertension, chronic lower extremity edema, hyperlipidemia, severe morbid obesity, history of untreated sleep apnea, who presented to the ER after acute onset of shortness of breath. Patient stated that he was sleeping in his recliner when he suddenly woke up gasping for air and it lasted for about a minute. Patient also noticed that he has been having sharp left-sided chest pain that lasts for several seconds and goes away for about a week. It has been happening every 1-2 days. Patient stated that he previously has seen Dr. Moreno with Cardiology for years and was recommended to have a stress test. Patient stated that he did not undergo stress test due to financial reasons. Reports having be told he has sleep apnea but did not want to use CPAP machine and this was about four years ago. Denied any previous history of [place] or pulmonary comorbidities. Denied any sig nificant alcohol intake or significant smoking. Labs [place] [address], hemoglobin 14.5, platelet count of 783116. BMP remarkable for sodium of 142, potassium 3.8, CO2 of 31, BUN of 14 , creatinine of 0.9, troponin of six, BNP of 24. Chest x-ray showed no significant infiltrates. Patient did receive IV dose of Lasix in the ER. Patient admitted for further evaluation of atypical chest pain. 02/14 patient remains in the PCU, comfortably in bed, alert oriented x3, denied chest pain, no shortness a breath, no nausea, no vomiting. Today BP 150/79, afebrile, saturating 100% room air, hemoglobin 14.0, hematocrit 45.0, platelet count of 172, WBC 12.4. CMP is unremarkable. Doppler of the lower extremities no evidence of DVT. CT chest no evidence of pulmonary embolism, clear lungs, echocardiogram pending report, Lexiscan stress test pending. REVIEW OF SYSTEMS CONSTITUTIONAL: Denies fevers, chills, or night sweats. No unintentional weight loss reported. NEUROLOGICAL: Denies headache, amaurosis fugax, motor weakness, sensory deficit, vertigo/spinning sensation, gait abnormalities, or tremors. ENT: No hearing loss, otalgia, otorrhea, rhinitis, rhinorrhea, hoarseness, or sore throat. CARDIOVASCULAR: Sudden onset of shortness of breadth today, reports having sedentary lifestyle, add sharp chest pain for about a week that lasts for several seconds PULMONARY: Denies any shortness of breath, cough, phlegm/sputum, hemoptysis, pleuritic chest pain. SLEEP: Denies morning headaches, daytime somnolence or napping. Denies difficulty falling asleep, staying asleep, waking from sleep. Denies knowledge of snoring. GASTROINTESTINAL: Denies any type of dysphagia to either liquids or solids. Denies nausea, vomiting, pyrosis, early satiety, abdominal pain, diarrhea, constipation, or changes in stool consistency or caliber. Denies coffee-ground emesis, hematemesis, hematochezia, or melanotic stools. GENITOURINARY: Denies frequency, urgency, nocturia, hematuria or incontinence (Storage/Irritative symptoms.) Low urinary stream, straining to void, urinary intermittency or hesitancy, splitting of the voiding stream, terminal dribbling. ENDOCRINOLOGIC: Denies polyuria, polydipsia, polyphagia or heat/cold intolerances. HEMATOLOGIC: Denies thrombophilia/previous clots, or coagulopathy/bleeding disorders. ONCOLOGIC: Denies personal history of malignancy. DERMATOLOGIC: Denies rashes or pruritus. PSYCHIATRIC: Denies any suicidal or homicidal ideation. Denies hallucinations. PHYSICAL EXAM GENERAL APPEARANCE: The patient is awake, alert, and oriented, in no acute cardiopulmonary distress. NEUROLOGICAL: Cranial nerves II-XII grossly intact. Motor is 5/5 in bilateral upper and lower extremities proximal to distal. No sensory deficits. HEENT: Face is symmetric. Pupils are equal and reactive. Extraocular movements are intact. NECK: Supple. No JVD. No thyromegaly. No submental, submandibular, pre- /postauricular, occipital or supraclavicular lymphadenopathy. CHEST: Normal chest expansion. No Telemetry. LUNGS: Absence of any rales, rhonchi or any wheezing. CARDIOVASCULAR: Regular. S1 and S2 normal. No appreciable rubs, murmurs or gallops. ABDOMEN: Soft, nontender, and nondistended. There is no rebound, voluntary guarding, or rigidity. : Deferred. No Knott. EXTREMITIES: Non-edematous and not cyanotic. No clubbing. Good capillary refill. SKIN: No skin breakdown. Vital Signs (last 8hr) Date Time Temp Pulse Resp B/P (MAP) Pulse Ox O2 Delivery O2 Flow Rate FiO2 02/14/25 07:51 97.3 89 18 150/79 100 Room Air 02/14/25 06:33 89 24 35 02/14/25 06:32 88 22 02/14/25 04:22 98.1 72 18 145/78 100 BIPAP 02/14/25 04:10 72 16 35 LABS: Laboratory: Test 02/14/25 04:05 02/13/25 18:14 02/13/25 12:16 02/13/25 07:45 Range/Units White Blood Count 12.4 H 4.8-10.8 K/uL Red Blood Count 5.18 4.50-6.20 MIL/uL Hemoglobin 14.0 14.0-18.0 g/dL Hematocrit 45.0 42-54 % Mean Corpuscular Volume 86.9 79-99 fL Mean Corpuscular Hemoglobin 27.0 27.0-33.0 pg Mean Corpuscular Hemoglobin Concent 31.1 L 32.0-36.0 g/dL Red Cell Distribution Width 13.3 11.0-15.5 % Platelet Count 172 130-400 K/uL Mean Platelet Volume 11.0 H 7.5-10.5 fL Immature Granulocyte % (Auto) 0.5 0-1 % Neutrophils (%) (Auto) 70.4 40.0-77.0 % Lymphocytes (%) (Auto) 19.8 L 21.0-51.0 % Monocytes (%) (Auto) 6.2 3.0-13.0 % Eosinophils (%) (Auto) 2.4 0.0-8.0 % Basophils (%) (Auto) 0.7 0.0-5.0 % Neutrophils # (Auto) 8.7 H 1.8-7.7 K/uL Lymphocytes # (Auto) 2.5 1.0-4.8 K/uL Monocytes # (Auto) 0.8 0.1-1.0 K/uL Eosinophils # (Auto) 0.30 0.00-0.70 K/uL Basophils # (Auto) 0.09 0.00-0.20 K/uL Absolute Immature Granulocyte (auto 0.06 0-1 K/uL Nucleated Red Blood Cells 0.0 0.0-0.19 % Sodium Level 141 136-145 mmol/L Potassium Level 3.8 3.5-5.1 mmol/L Chloride Level 105 101-111 mmol/L Carbon Dioxide Level 30 21-32 mmol/L Blood Urea Nitrogen 14 7-18 mg/dL Creatinine 0.9 0.5-1.3 mg/dL Glomerular Filtration Rate Calc 94 >90 mL/min Random Glucose 118 H 70-105 mg/dL Total Calcium 8.4 L 8.5-10.1 mg/dL Magnesium Level 2.20 1.80-2.40 mg/dL Total Bilirubin 0.4 # 0.2-1.0 mg/dL Aspartate Amino Transf (AST/SGOT) 14 10-37 U/L Alanine Aminotransferase (ALT/SGPT) 35 12-78 U/L Alkaline Phosphatase 84 50-136 U/L Total Protein 7.4 6.0-8.3 g/dL Albumin 3.3 L 3.5-5.0 g/dL Erythrocyte Sedimentation Rate 18 0-20 MM/HR Total Creatine Kinase 112 # 21-232 U/L Troponin I High Sensitivity 5.2 4-75 ng/L C-Reactive Protein, Quantitative 6.10 H 0.5-3.0 mg/L Procalcitonin < 0.05 L 0.05-0.5 ng/mL Influenza Type A Antigen Negative For Type A NEGATIVE Influenza Type B Antigen Negative For Type B NEGATIVE SARS-CoV-2, RNA, NAAT NEGATIVE SARS CoV-2 NEGATIVE Prothrombin Time 10.5 9.6-11.6 SEC Prothromb Time International Ratio 0.99 0.85-1.15 Activated Partial Thromboplast Time 27.2 26.3-35.5 SEC D-Dimer Quantitative (PE/DVT) 536 *H 0-500 ng/mL Direct Bilirubin 0.1 0.0-0.3 mg/dL B-Type Natriuretic Peptide 24 0-100 pg/mL Current Medications Medications (Trade) Dose Ordered Sig/Kaycee Route PRN Reason Start Time Stop Time Status Last Admin Dose Admin Acetaminophen (TYLenol 325MG TAB) 650 mg Q6H PRN PO MILD PAIN (1-3) 02/13/25 12:00 03/15/25 11:59 Atorvastatin Calcium (LIPItor 40MG) 80 mg HS PO 02/13/25 21:00 03/15/25 20:59 6/12/25 19:58 80 MG Benazepril HCl (LoTENSin) 20 mg Q24H PO 02/13/25 13:00 03/15/25 12:59 02/13/25 13:42 20 MG Budesonide (Pulmicort 0.5 Mg/2ml) 0.5 mg BIDRESP IH 02/13/25 18:00 02/13/25 12:10 DC Budesonide (Pulmicort 0.5 Mg/2ml) 0.5 mg BIDRESP IH 02/13/25 18:00 03/15/25 17:59 02/14/25 06:37 0.5 MG Enoxaparin Sodium (Lovenox) 40 mg DAILY SQ 02/14/25 09:00 03/16/25 08:59 Furosemide (LASix 20MG TAB) 20 mg DAILY PO 02/14/25 09:00 03/16/25 08:59 Ipratropium Ridge (AtrovENT UD) 0.5 mg Q6H PRN IH SHORTNESS OF BREATH 02/13/25 12:00 03/15/25 11:59 Ondansetron HCl (zoFRAN 4MG INJ) 4 mg Q6H PRN IVP NAUSEA/VOMITING 02/13/25 12:00 03/15/25 11:59 Potassium Chloride 100 ml @ 100 mls/hr AD PRN IV POTASSIUM PROTOCOL 02/13/25 12:00 03/15/25 11:59 Potassium Chloride (K-Dur/Klor-Con 20meq) 20 meq AD PRN PO POTASSIUM PROTOCOL 02/13/25 12:00 03/15/25 11:59 Potassium Chloride (KCl 10% Elixir 20meq/15ml) 20 meq AD PRN PO POTASSIUM PROTOCOL 02/13/25 12:00 03/15/25 11:59 DIAGNOSTICS / RADIOLOGY: [ ] ASSESSMENT: Atypical chest pain, POA Sudden onset shortness of breath, POA Untreated obstructive sleep apnea with episodes of apnea, POA Morbid obesity, POA Hypertension, POA Hyperlipidemia, POA Mild leukocytosis, POA Bilateral chronic lower extremity edema, POA PLAN: patient remains in the PCU, BP 150/79, afebrile, saturating 100% room air, hemoglobin 14.0, hematocrit 45.0, platelet count of 172, WBC 12.4. CMP is unremarkable. Doppler of the lower extremities no evidence of DVT. CT chest no evidence of pulmonary embolism, clear lungs, echocardiogram pending report, Lexiscan stress test pending. NEURO: Minimize central acting medications as possible. Fall Precautions. Well lighted room through the day and minimize interruptions through the night to prevent acute delirium. PULMONARY: Supplemental 02 as needed BiPAP as necessary, for respiratory distress Titrate Fio2 to keep Spo2 > or = 90% DuoNebs and CPT as needed IS hourly while awake for pulmonary hygiene prn Out of bed to chair as tolerated Maintain aspiration precautions at all times CARDIOVASCULAR: Follow hemodynamics. Vital signs per facility protocol GI & NUTRITION: Continue nutritional support Aspirations precautions Prokinetic agents and laxatives as needed KIDNEYS & ELECTROLYTES: Strict monitoring of intake and output Daily weights Avoid nephrotoxic agents Monitor electrolytes and replace as needed Goal urine output of 30mL/hr or 0.5mL/kg/hr Medications to be dosed according to renal function. Avoid contrast if possible ENDOCRINE: Maintain blood glucose between 100-180 at all times. Insulin sliding scale for blood glucose management Hypoglycemia and hyperglycemia protocol in place INFECTIOUS DISEASE: Trend temperature, WBC and procalcitonin level Follow cultures, deescalate antibiotics as soon as possible. Panculture if new onset fever HEMATOLOGY & COAGULATION: Monitor H&H. Keep Hgb > 7 Transfuse 1 unit of PRBC for Hgb < 7 Transfuse 1 pack of platelets of platelets < 20, 000 Watch for any signs and symptoms of bleeding SKIN: Pressure ulcer prevention per facility protocol Specialty mattress as needed ORTHO/REHAB Continue PT/OT PRN: MEDICATIONS Tylenol 650 mg po every 4 hrs for fever zofran 4 mg IV every 6 hrs for n/v Hydralazine 5 mg IV every 4 hrs systolic pressure > 160 bowel regiment: lactulose 20 gm PO BID PRN constipation Supportive measures: Continue GI and DVT prophylaxis Disposition: Pending improvement in clinical condition All questions answered time spent: > 35 min BROOKE AL MD Feb 14, 2025 10:40
[2025-02-14] MEDS: furoSEMIDE 20 MG TABLET PO SCH (10:42)
[2025-02-14] MEDS: ENOXAPARIN SODIUM 40 MG/0.4 ML SYRINGE SQ SCH (10:43)
--- NOTE | 2025-02-14 11:44 | DS ---
Discharge Summary Hospital Course Summary: This is a 69-year-old male with underlying history of hypertension, chronic lower extremity edema, hyperlipidemia, severe morbid obesity, history of untreated sleep apnea, who presented to the ER after acute onset of shortness of breath. Patient stated that he was sleeping in his recliner when he suddenly woke up gasping for air and it lasted for about a minute. Patient also noticed that he has been having sharp left-sided chest pain that lasts for several seconds and goes away for about a week. It has been happening every 1-2 days. Patient stated that he previously has seen Dr. Moreno with Cardiology for years and was recommended to have a stress test. Patient stated that he did not undergo stress test due to financial reasons. Reports having be told he has sleep apnea but did not want to use CPAP machine and this was about four years ago. Denied any previous history of [place] or pulmonary comorbidities. Denied any significant alcohol intake or significant smoking. Labs [place] [address], hemoglobin 14.5, platelet count of 848847. BMP remarkable for sodium of 142, potassium 3.8, CO2 of 31, BUN of 14 , creatinine of 0.9, troponin of six, BNP of 24. Chest x-ray showed no significant infiltrates. Patient did receive IV dose of Lasix in the ER. Patient admitted for further evaluation of atypical chest pain. 02/14 patient remains in the PCU, comfortably in bed, alert oriented x3, denied chest pain, no shortness a breath, no nausea, no vomiting. Today BP 150/79, afebrile, saturating 100% room air, hemoglobin 14.0, hematocrit 45.0, platelet count of 172, WBC 12.4. CMP is unremarkable. Doppler of the lower extremities no evidence of DVT. CT chest no evidence of pulmonary embolism, clear lungs, echocardiogram pending report, Lexiscan stress test pending. Cost Analyst(s): Cardiology Assessment/Plan: Final diagnosis Atypical chest pain, POA Sudden onset shortness of breath, POA Untreated obstructive sleep apnea with episodes of apnea, POA Morbid obesity, POA Hypertension, POA Hyperlipidemia, POA Mild leukocytosis, POA Bilateral chronic lower extremity edema, POA Discharge Instructions: Patient to follow with PCP and Cardiology as an outpatient. Return to the hospital if condition changes. Advised to follow with Pulmonary physician for sleep studies as an outpatient to rule out JOSELUIS. Home Medications: Reported Medications Amlodipine Besylate/Benazepril (Lotrel 5-20 mg Capsule) 5 Mg-20 Mg Capsule, 1 CAP PO DAILY for 30 Days, #30 CAP 0 Refills 02/13/25 Furosemide (Furosemide) 20 Mg Tablet, 1 TAB PO DAILY for 30 Days, #30 TAB 0 Refills 02/13/25 Rosuvastatin Calcium (Crestor) 20 Mg Tablet, 20 MG PO AM, TAB 06/24/15 Discontinued Reported Medications Hydrochlorothiazide (Hydrochlorothiazide) 25 Mg Tablet, 25 MG PO AM, TAB 06/24/15 Metoprolol Succinate (Metoprolol Succinate) 100 Mg Tab.er.24h, 100 MG PO AM, TAB 06/24/15 Time spent arranging discharge: 31-60 minutes BROOKE AL MD Feb 14, 2025 11:44
--- NOTE | 2025-02-14 13:14 | PN ---
[facility] PROGRESS NOTE Date Patient Seen: Feb 14, 2025 Time of Visit: 11:46 Supervising Physician: Dr. Akers Primary Care Physician: Dr. Bola Castro Outpatient Specialists: [ ] Inpatient Consults: [ ] PROBLEM LIST: Acute onset respiratory failure, POA Elevated D-dimer r/o PE Atypical chest pain, POA Untreated obstructive sleep apnea/obesity hypoventilation syndrome with episodes of apnea, POA Hypertension, POA Hyperlipidemia, POA Mild leukocytosis, POA Bilateral chronic lower extremity edema, POA Morbid obesity, POA] INTERVAL HISTORY: 02/14/2025: At the time of my evaluation, the patient was sitting up in bed. He recently returned after undergoing a Lexiscan procedure. Per the patient report, he feels much better today. Vital signs were unremarkable and the patient remains on room air. Laboratory data showed a slight interval increase of WBC 12.4. Chemistry panel was unremarkable. CT of the chest showed no PE and Lexiscan report showed a LVEF of 63% and no ischemia. Per the staff nurse, the patient is slated for discharge home today. REVIEW OF SYSTEMS: 12 point ROS reviewed with patient. Pertinent positives mentioned above. Otherwise negative. PHYSICAL EXAM: GENERAL: Alert, weak, awake oriented x 3. Morbidly obese HEENT: EOMI, Sclera non icteric, moist mucosa NECK: Supple, no JVD, trachea midline LUNGS: Clear breath sounds bilaterally. No wheezes HEART: Regular rate and rhythm. Normal S1 and S2, without murmurs ABD: Abdomen soft, nontender. Bowel sounds present EXT: No clubbing cyanosis or edema NEURO: Alert and oriented to person, follows commands Vital Signs (last 8hr) Date Time Temp Pulse Resp B/P (MAP) Pulse Ox O2 Delivery O2 Flow Rate FiO2 02/14/25 13:02 97.5 89 18 152/80 98 Room Air 02/14/25 07:51 97.3 89 18 150/79 100 Room Air 02/14/25 06:33 89 24 35 02/14/25 06:32 88 22 LABS: Hematology Labs: Test 02/14/25 04:05 02/13/25 18:14 Range/Units White Blood Count 12.4 H 4.8-10.8 K/uL Red Blood Count 5.18 4.50-6.20 MIL/uL Hemoglobin 14.0 14.0-18.0 g/dL Hematocrit 45.0 42-54 % Mean Corpuscular Volume 86.9 79-99 fL Mean Corpuscular Hemoglobin 27.0 27.0-33.0 pg Mean Corpuscular Hemoglobin Concent 31.1 L 32.0-36.0 g/dL Red Cell Distribution Width 13.3 11.0-15.5 % Platelet Count 172 130-400 K/uL Mean Platelet Volume 11.0 H 7.5-10.5 fL Immature Granulocyte % (Auto) 0.5 0-1 % Neutrophils (%) (Auto) 70.4 40.0-77.0 % Lymphocytes (%) (Auto) 19.8 L 21.0-51.0 % Monocytes (%) (Auto) 6.2 3.0-13.0 % Eosinophils (%) (Auto) 2.4 0.0-8.0 % Basophils (%) (Auto) 0.7 0.0-5.0 % Neutrophils # (Auto) 8.7 H 1.8-7.7 K/uL Lymphocytes # (Auto) 2.5 1.0-4.8 K/uL Monocytes # (Auto) 0.8 0.1-1.0 K/uL Eosinophils # (Auto) 0.30 0.00-0.70 K/uL Basophils # (Auto) 0.09 0.00-0.20 K/uL Absolute Immature Granulocyte (auto 0.06 0-1 K/uL Nucleated Red Blood Cells 0.0 0.0-0.19 % Erythrocyte Sedimentation Rate 18 0-20 MM/HR Chemistry Labs: Test 02/14/25 04:05 02/13/25 18:14 02/13/25 07:45 Range/Units Sodium Level 141 136-145 mmol/L Potassium Level 3.8 3.5-5.1 mmol/L Chloride Level 105 101-111 mmol/L Carbon Dioxide Level 30 21-32 mmol/L Blood Urea Nitrogen 14 7-18 mg/dL Creatinine 0.9 0.5-1.3 mg/dL Glomerular Filtration Rate Calc 94 >90 mL/min Random Glucose 118 H 70-105 mg/dL Total Calcium 8.4 L 8.5-10.1 mg/dL Magnesium Level 2.20 1.80-2.40 mg/dL Total Bilirubin 0.4 # 0.2-1.0 mg/dL Aspartate Amino Transf (AST/SGOT) 14 10-37 U/L Alanine Aminotransferase (ALT/SGPT) 35 12-78 U/L Alkaline Phosphatase 84 50-136 U/L Total Protein 7.4 6.0-8.3 g/dL Albumin 3.3 L 3.5-5.0 g/dL Total Creatine Kinase 112 # 21-232 U/L Troponin I High Sensitivity 5.2 4-75 ng/L C-Reactive Protein, Quantitative 6.10 H 0.5-3.0 mg/L Procalcitonin < 0.05 L 0.05-0.5 ng/mL Direct Bilirubin 0.1 0.0-0.3 mg/dL B-Type Natriuretic Peptide 24 0-100 pg/mL Coagulation Labs: Test 02/13/25 07:45 Range/Units Prothrombin Time 10.5 9.6-11.6 SEC Prothromb Time International Ratio 0.99 0.85-1.15 Activated Partial Thromboplast Time 27.2 26.3-35.5 SEC D-Dimer Quantitative (PE/DVT) 536 *H 0-500 ng/mL DIAGNOSTICS / RADIOLOGY RESULTS: [ ] PLAN Pulmonology consultation was requested due to concern for untreated JOSELUIS/OHS. I am going to start the patient on CPAP at with inspiratory pressure 10 cm H2O and 40% FiO2. Because of the sudden onset respiratory distress and a minimally elevated D-dimer, we will request a CT of the chest PE protocol if not yet requested. We will await the 2D echo results. Cardiology was consulted and we will follow their input on further management. We will monitor the patient's progress and response to management. I discussed the findings and plan for further management with the patient. We will monitor the patient's progress and response to management. We will continue to provide general supportive care, GI and DVT prophylaxis. I appreciate the opportunity provided to participate in patient's care. Further orders per attending MD and hospital course. 02/14/2025: For now, going to continue current management for the patient. Currently, the patient remains on room air. There still remains concern for a possible obstructive sleep apnea. Recommend for the patient to follow up with pulmonology Dr. Yasmine De Leon in the outpatient setting. Considering the patient does not require any further critical care interventions and respiratory zarate has maintained stable, the patient can be discharged from the [facility]. Thank you for allowing us to participate in patient care. NEURO: Minimize central acting medications as possible. Maintain fall precautions, adequate lighting during the day PULMONARY: Supplemental 02 as needed. Maintain aspiration precautions at all times CARDIOVASCULAR: Follow hemodynamics. Vital signs per facility protocol GI & NUTRITION: Continue with nutritional support. Continue stool softeners and laxatives as needed. KIDNEYS & ELECTROLYTES: Strict monitoring of intake, output and overall fluid balance. Avoid nephrotoxic medications to the extent possible. Medications to be dosed according to renal function. Monitor electrolytes and replace as needed ENDOCRINE: Maintain blood glucose between 100-180 at all times. Hypoglycemia protocol in place INFECTIOUS DISEASE: Trend temperature, WBC and procalcitonin level Follow cultures, deescalate antibiotics as soon as possible. Panculture if new onset fever ONCOLOGY/HEMATOLOGY/COAGULATION: Monitor for s/s of bleeding Monitor hemoglobin, coagulation studies as needed SKIN: Pressure ulcer prevention per facility protocol Specialty mattress ORTHO/REHAB: Continue PT/OT Prophylaxis: Continue GI and DVT prophylaxis Code Status: Full Resuscitation Disposition: TBD Other: Patient was seen and case discussed with kenney HECTOR. Plan of care was discussed and agreed upon. SALLY GARCIA IMPROVEMENT ANALYST Feb 14, 2025 13:14
--- NOTE | 2025-02-14 15:23 | HMCSR ---
APPROVED REPORT EXAM: Two-dimensional and M-mode echocardiogram with Doppler and color Doppler. INDICATION ICD: Rule out heart failure 2D Dimensions RVDd4.6 cmLVEF(%)61.3 (>50%)LVED Vol(simp.)94.0 mL IVSd0.8 (0.7-1.1cm)FS(%)33 %LVES Vol(simp.)41.0 mL LVDd4.9 (3.8-5.6cm)LA (2D)4.1 (1.6-4.0cm)LVEF(%, simp.)56 % PWd1.0 (0.7-1.1cm)Ao Root(2D)3.0 (2.0-3.7cm)LA ESV INDEX (BP)22.40 mL/m2 IVSs0.8 cmLVOT diam2.4 (1.8-2.4cm) LVDs3.3 (2.5-4.0cm) PWs1.6 cm Deformation Strain Apical 4-14.3 % Apical 2-14.5 % Apical 3-9.6 % Global Strain-12.8 % M-Mode Dimensions EPSS0.4 cm LA (MM)4.3 (1.6-4.0cm) Ao Root(MM)3.0 (2.0-3.7cm) Aortic Valve AoV Vmax1.1 m/[place] Peak GR4.8 mmHgLVOT Vmax1.0 m/s AoV VTI0.2 mAo Mean GR3.2 mmHgLVOT VTI0.20 m GIUSEPPE (VMAX)3.85 cm2AVA (VTI) 4.4 cm2 Mitral Valve MV E Vmax67.4 cm/sDECEL Lqyz061 ms MV A Vmax72.8 cm/sP 1/2 T52 ms E/A ratio0.9MVA (PHT)4.3 cm2 TDI E/E' Lwsich86.7E/E' Lateral9.7 Medial E' Peak V5.76 cm/sLateral E' Peak V6.93 cm/s Pulmonary Valve PV Vmax1.1 m/sPV VTI0.20 mPV Mean GR2.8 mmHg PV Peak GR5.2 mmHg Left Ventricle The left ventricle is normal size. GLS -13.0% There is normal left ventricular wall thickness. The LV EF is 50-55%. 3D volume EF 56%. The left ventricular diastolic function is normal. Right Ventricle The right ventricle is moderately dilated. The right ventricular systolic function is normal. Atria The left atrium size is normal. The right atrium size is normal. Aortic Valve The aortic valve is normal in structure. No aortic regurgitation is present. There is no aortic valvu lar stenosis. Mitral Valve The mitral valve is normal in structure. There is no mitral valve regurgitation noted. There is no mi tral valve stenosis. Tricuspid Valve The tricuspid valve is normal in structure. There is no tricuspid valve regurgitation noted. Pulmonic Valve The pulmonary valve is normal in structure. There is no pulmonic valvular regurgitation. Great Vessels The aortic root is normal in size. The IVC is normal in size and collapses >50% with inspiration. Pericardium There is no pericardial effusion. Other Information Quality : Technically difficult study due to body habitusRhythm : NSR Conclusion The LVEF is 50-55%. 3D volume EF 56%. The left ventricular diastolic function is normal.
--- NOTE | 2025-02-14 16:59 | HMCSR ---
APPROVED REPORT Height: 5 ft 9in Weight: 348 lbs TEST INDICATIONS Chest Pain The imaging protocol used to acquire images was Rest Tc-99m/stress Tc-99m 1 day Consent: The procedure was explained and understood by the patient. Informerd consent was witnessed Radha Pittman RN First, low dose rest was performed then high dose stress. RESTING DATA: The resting ekg shows: NSR Rest SPECT myocardial perfusion imaging was performed in supine position minutes following the intra venous injection of 11 mCi of Tc-99 Sestamibi. Time of rest injection: 06:45: Date: 02/14/2025 PHARMACOLOGIC STRESS: Pharmacologic stress test was performed by injecting regadenoson 0.4 mg IV push followed by the intra venous injection of 29 mCi of Tc-99 Sestamibi. Time of stress injection: 08:28: Date: 02/14/2025 Heart Rate at time of stress injection: 82 bpm. Gated Stress SPECT was performed 60 minutes after stress injection. The images were gated to evaluate regional wall motion and calculate left ventricular ejection fracti on. STRESS DETAILS Reason for Termination: Infusion complete Stress Symptoms: Dyspnea Max HR Achieved: 98 bpm % of APMHR Achieved: 75 Max Blood Pressure: 140/64 mmHg Stress ECG: NSR Study quality was good. Lung uptake was Normal. Artifact: No artifact LEFT VENTRICLE The left ventricular ejection fraction was calculated to be 63%.TID = 0.93. LV PERFUSION Stress Perfusion Normal IMPRESSION Normal pharmacologic nuclear stress test. Conclusion Normal [id number] stress test with an LVEF of 63% and a TID of 0.93 No ischemia.
--- NOTE | 2025-02-14 18:32 | NUR ---
PT HAS BEEN WAITING FOR DR. STEIN FOR THE RESULTS OF THE STRESS TEST. DR. AL HAD ADVISED PT THAT HE COULD PROBABLY BE DISCHARGED AFTER DR. STEIN SAW THE STRESS TEST RESULTS AND THAT AFTER DISCHARGE HE WOULD HAVE TO GET HIS PCP TO REFER HIM FOR SLEEP APNEA STUDY.
[2025-02-15] VITALS (7 sets, daily range): BP systolic 126–146; BP diastolic 68–81; PULSE 77–82; RESP 18–22; TEMP 97.9–98.7; O2SAT 98–99
[2025-02-15 05:17] LABS: HEMATOCRIT 45.2 % (42-54); MEAN CORPUSCULAR HEMOGLOBIN 27.1 pg (27.0-33.0); MEAN CORPUSCULAR HGB CONC 31.2 g/dL (32.0-36.0); MEAN CORPUSCULAR VOLUME 86.8 fL (79-99); RED BLOOD CELL COUNT(AUTO) 5.21 MIL/uL (4.50-6.20); RED CELL DISTRIBUTION WIDTH 13.3 % (11.0-15.5)
[2025-02-15 05:40] LABS: ALBUMIN 3.3 g/dL (3.5-5.0); BILIRUBIN,TOTAL 0.5 mg/dL (0.2-1.0); CREATININE 0.9 mg/dL (0.5-1.3); POTASSIUM 4.1 mmol/L (3.5-5.1); TOTAL PROTEIN, SERUM 7.3 g/dL (6.0-8.3)
--- NOTE | 2025-02-15 11:19 | PN ---
[facility] PROGRESS NOTE Date of Service: Feb 15, 2025 Time of Service: 11:18 SUBJECTIVE: This is a 69-year-old male with underlying history of hypertension, chronic lower extremity edema, hyperlipidemia, severe morbid obesity, history of untreated sleep apnea, who presented to the ER after acute onset of shortness of breath. Patient stated that he was sleeping in his recliner when he suddenly woke up gasping for air and it lasted for about a minute. Patient also noticed that he has been having sharp left-sided chest pain that lasts for several seconds and goes away for about a week. It has been happening every 1-2 days. Patient stated that he previously has seen Dr. Moreno with Cardiology for years and was recommended to have a stress test. Patient stated that he did not undergo stress test due to financial reasons. Reports having be told he has sleep apnea but did not want to use CPAP machine and this was about four years ago. Denied any previous history of [place] or pulmonary comorbidities. Denied any sig nificant alcohol intake or significant smoking. [place] [address], hemoglobin 14.5, platelet count of [id number]. BMP remarkable for sodium of 142, potassium 3.8, CO2 of 31, BUN of 14 , creatinine of 0.9, troponin of six, BNP of 24. Chest x-ray showed no significant infiltrates. Patient did receive IV dose of Lasix in the ER. Patient admitted for further evaluation of atypical chest pain. 02/14 patient remains in the PCU, comfortably in bed, alert oriented x3, denied chest pain, no shortness a breath, no nausea, no vomiting. Today BP 150/79, afebrile, saturating 100% room air, hemoglobin 14.0, hematocrit 45.0, platelet count of 172, WBC 12.4. CMP is unremarkable. Doppler of the lower extremities no evidence of DVT. CT chest no evidence of pulmonary embolism, clear lungs, echocardiogram pending report, Lexiscan stress test pending. 02/15 patient remains admitted to the PCU, comfortably in bed, alert oriented x3, case discussed with the RN, no acute events overnight. Lexiscan stress test normal, no ischemia, LVEF 63%. Awaiting further Cardiology recommendations, possible discharge home today. REVIEW OF SYSTEMS CONSTITUTIONAL: Denies fevers, chills, or night sweats. No unintentional weight loss reported. NEUROLOGICAL: Denies headache, amaurosis fugax, motor weakness, sensory deficit, vertigo/spinning sensation, gait abnormalities, or tremors. ENT: No hearing loss, otalgia, otorrhea, rhinitis, rhinorrhea, hoarseness, or sore throat. CARDIOVASCULAR: Sudden onset of shortness of breadth today, reports having sedentary lifestyle, add sharp chest pain for about a week that lasts for several seconds PULMONARY: Denies any shortness of breath, cough, phlegm/sputum, hemoptysis, pleuritic chest pain. SLEEP: Denies morning headaches, daytime somnolence or napping. Denies difficulty falling asleep, staying asleep, waking from sleep. Denies knowledge of snoring. GASTROINTESTINAL: Denies any type of dysphagia to either liquids or solids. Denies nausea, vomiting, pyrosis, early satiety, abdominal pain, diarrhea, constipation, or changes in stool consistency or caliber. Denies coffee-ground emesis, hematemesis, hematochezia, or melanotic stools. GENITOURINARY: Denies frequency, urgency, nocturia, hematuria or incontinence (Storage/Irritative symptoms.) Low urinary stream, straining to void, urinary intermittency or hesitancy, splitting of the voiding stream, terminal dribbling. ENDOCRINOLOGIC: Denies polyuria, polydipsia, polyphagia or heat/cold intolerances. HEMATOLOGIC: Denies thrombophilia/previous clots, or coagulopathy/bleeding disorders. ONCOLOGIC: Denies personal history of malignancy. DERMATOLOGIC: Denies rashes or pruritus. PSYCHIATRIC: Denies any suicidal or homicidal ideation. Denies hallucinations. PHYSICAL EXAM GENERAL APPEARANCE: The patient is awake, alert, and oriented, in no acute cardiopulmonary distress. NEUROLOGICAL: Cranial nerves II-XII grossly intact. Motor is 5/5 in bilateral upper and lower extremities proximal to distal. No sensory deficits. HEENT: Face is symmetric. Pupils are equal and reactive. Extraocular movements are intact. NECK: Supple. No JVD. No thyromegaly. No submental, submandibular, pre- /postauricular, occipital or supraclavicular lymphadenopathy. CHEST: Normal chest expansion. No Telemetry. LUNGS: Absence of any rales, rhonchi or any wheezing. CARDIOVASCULAR: Regular. S1 and S2 normal. No appreciable rubs, murmurs or gallops. ABDOMEN: Soft, nontender, and nondistended. There is no rebound, voluntary guarding, or rigidity. : Deferred. No Knott. EXTREMITIES: Non-edematous and not cyanotic. No clubbing. Good capillary refill. SKIN: No skin breakdown. Vital Signs (last 8hr) Date Time Temp Pulse Resp B/P (MAP) Pulse Ox O2 Delivery O2 Flow Rate FiO2 02/15/25 08:25 99 Room Air* 0 21 02/15/25 08:21 98.1 78 18 126/77 99 02/15/25 06:41 82 18 02/15/25 06:40 20 N/A Room Air 21 02/15/25 03:45 98.8 82 22 146/68 100 Room Air LABS: Laboratory: Test 02/15/25 05:05 02/14/25 04:05 02/13/25 18:14 02/13/25 12:16 Range/Units White Blood Count 12.0 H 4.8-10.8 K/uL Red Blood Count 5.21 4.50-6.20 MIL/uL Hemoglobin 14.1 14.0-18.0 g/dL Hematocrit 45.2 42-54 % Mean Corpuscular Volume 86.8 79-99 fL Mean Corpuscular Hemoglobin 27.1 27.0-33.0 pg Mean Corpuscular Hemoglobin Concent 31.2 L 32.0-36.0 g/dL Red Cell Distribution Width 13.3 11.0-15.5 % Platelet Count 171 130-400 K/uL Mean Platelet Volume 10.4 7.5-10.5 fL Nucleated Red Blood Cells 0.0 0.0-0.19 % Sodium Level 141 136-145 mmol/L Potassium Level 4.1 3.5-5.1 mmol/L Chloride Level 104 101-111 mmol/L Carbon Dioxide Level 30 21-32 mmol/L Blood Urea Nitrogen 11 7-18 mg/dL Creatinine 0.9 0.5-1.3 mg/dL Glomerular Filtration Rate Calc 94 >90 mL/min Random Glucose 103 70-105 mg/dL Total Calcium 8.6 8.5-10.1 mg/dL Magnesium Level 2.00 1.80-2.40 mg/dL Total Bilirubin 0.5 0.2-1.0 mg/dL Aspartate Amino Transf (AST/SGOT) 17 10-37 U/L Alanine Aminotransferase (ALT/SGPT) 35 12-78 U/L Alkaline Phosphatase 86 50-136 U/L Total Protein 7.3 6.0-8.3 g/dL Albumin 3.3 L 3.5-5.0 g/dL Immature Granulocyte % (Auto) 0.5 0-1 % Neutrophils (%) (Auto) 70.4 40.0-77.0 % Lymphocytes (%) (Auto) 19.8 L 21.0-51.0 % Monocytes (%) (Auto) 6.2 3.0-13.0 % Eosinophils (%) (Auto) 2.4 0.0-8.0 % Basophils (%) (Auto) 0.7 0.0-5.0 % Neutrophils # (Auto) 8.7 H 1.8-7.7 K/uL Lymphocytes # (Auto) 2.5 1.0-4.8 K/uL Monocytes # (Auto) 0.8 0.1-1.0 K/uL Eosinophils # (Auto) 0.30 0.00-0.70 K/uL Basophils # (Auto) 0.09 0.00-0.20 K/uL Absolute Immature Granulocyte (auto 0.06 0-1 K/uL Erythrocyte Sedimentation Rate 18 0-20 MM/HR Total Creatine Kinase 112 # 21-232 U/L Troponin I High Sensitivity 5.2 4-75 ng/L C-Reactive Protein, Quantitative 6.10 H 0.5-3.0 mg/L Procalcitonin < 0.05 L 0.05-0.5 ng/mL Influenza Type A Antigen Negative For Type A NEGATIVE Influenza Type B Antigen Negative For Type B NEGATIVE SARS-CoV-2, RNA, NAAT NEGATIVE SARS CoV-2 NEGATIVE Current Medications Medications (Trade) Dose Ordered Sig/Kaycee Route PRN Reason Start Time Stop Time Status Last Admin Dose Admin Acetaminophen (TYLenol 325MG TAB) 650 mg Q6H PRN PO MILD PAIN (1-3) 02/13/25 12:00 03/15/25 11:59 Atorvastatin Calcium (LIPItor 40MG) 80 mg HS PO 02/13/25 21:00 03/15/25 20:59 02/14/25 21:02 80 MG Benazepril HCl (LoTENSin) 20 mg Q24H PO 02/13/25 13:00 03/15/25 12:59 02/14/25 13:00 20 MG Budesonide (Pulmicort 0.5 Mg/2ml) 0.5 mg BIDRESP IH 02/13/25 18:00 02/13/25 12:10 DC Budesonide (Pulmicort 0.5 Mg/2ml) 0.5 mg BIDRESP IH 02/13/25 18:00 03/15/25 17:59 02/15/25 06:41 0.5 MG Enoxaparin Sodium (Lovenox) 40 mg DAILY SQ 02/14/25 09:00 03/16/25 08:59 02/15/25 09:04 40 MG Furosemide (LASix 20MG TAB) 20 mg DAILY PO 02/14/25 09:00 03/16/25 08:59 02/15/25 09:03 20 MG Ipratropium [place] (AtrovENT UD) 0.5 mg Q6H PRN IH SHORTNESS OF BREATH 02/13/25 12:00 03/15/25 11:59 Ondansetron HCl (zoFRAN 4MG INJ) 4 mg Q6H PRN IVP NAUSEA/VOMITING 02/13/25 12:00 03/15/25 11:59 Potassium Chloride 100 ml @ 100 mls/hr AD PRN IV POTASSIUM PROTOCOL 02/13/25 12:00 03/15/25 11:59 Potassium Chloride (K-Dur/Klor-Con 20meq) 20 meq AD PRN PO POTASSIUM PROTOCOL 02/13/25 12:00 03/15/25 11:59 Potassium Chloride (KCl 10% Elixir 20meq/15ml) 20 meq AD PRN PO POTASSIUM PROTOCOL 02/13/25 12:00 03/15/25 11:59 DIAGNOSTICS / RADIOLOGY: [ ] ASSESSMENT: Atypical chest pain, POA Sudden onset shortness of breath, POA Untreated obstructive sleep apnea with episodes of apnea, POA Morbid obesity, POA Hypertension, POA Hyperlipidemia, POA Mild leukocytosis, POA Bilateral chronic lower extremity edema, POA PLAN: Patient remains admitted to the PCU Awaiting further Cardiology recommendations, possible discharge home today. Discussed with the patient and family members at bedside, all questions answered. BROOKE AL MD Feb 15, 2025 11:19
--- NOTE | 2025-02-15 13:21 | PN ---
[facility] PROGRESS NOTE Date Patient Seen: Feb 15, 2025 Time of Visit: 13:21 Supervising Physician:Dr. Akers Primary Care Physician: Dr. Bola Castro Outpatient Specialists: [ ] Inpatient Consults: [ ] PROBLEM LIST: Acute onset respiratory failure, POA Elevated D-dimer r/o PE Atypical chest pain, POA Untreated obstructive sleep apnea/obesity hypoventilation syndrome with episodes of apnea, POA Hypertension, POA Hyperlipidemia, POA Mild leukocytosis, POA Bilateral chronic lower extremity edema, POA Morbid obesity, POA] INTERVAL HISTORY: 02/14/2025: At the time of my evaluation, the patient was sitting up in bed. He recently returned after undergoing a Lexiscan procedure. Per the patient report, he feels much better today. Vital signs were unremarkable and the patient remains on room air. Laboratory data showed a slight interval increase of WBC 12.4. Chemistry panel was unremarkable. CT of the chest showed no PE and Lexiscan report showed a LVEF of 63% and no ischemia. Per the staff nurse, the patient is slated for discharge home today. 02/15/2025: At the time of my evaluation, the patient is lying in bed. The staff nurse reports no acute events overnight. Currently, the patient is on room air and remaining vital signs parameters are unremarkable. Laboratory data today showed improved WBC 12.0. Remaining vital signs parameters were unremarkable. The patient underwent Lexiscan test yesterday with results of a normal pharmacologic nuclear stress test and a LVEF of 63%, no ischemia. No acute events overnight. No other complaint. REVIEW OF SYSTEMS: 12 point ROS reviewed with patient. Pertinent positives mentioned above. Otherwise negative. PHYSICAL EXAM: GENERAL: Alert, weak, awake oriented x 3. Morbidly obese HEENT: EOMI, Sclera non icteric, moist mucosa NECK: Supple, no JVD, trachea midline LUNGS: Clear breath sounds bilaterally. No wheezes HEART: Regular rate and rhythm. Normal S1 and S2, without murmurs ABD: Abdomen soft, nontender. Bowel sounds present EXT: No clubbing cyanosis or edema NEURO: Alert and oriented to person, follows commands Vital Signs (last 8hr) Date Time Temp Pulse Resp B/P (MAP) Pulse Ox O2 Delivery O2 Flow Rate FiO2 02/15/25 11:42 97.9 77 18 140/81 99 02/15/25 08:25 99 Room Air* 0 21 6/14/25 08:21 98.1 78 18 126/77 99 02/15/25 06:41 82 18 02/15/25 06:40 20 N/A Room Air 21 LABS: Hematology Labs: Test 02/15/25 05:05 02/14/25 04:05 02/13/25 18:14 Range/Units White Blood Count 12.0 H 4.8-10.8 K/uL Red Blood Count 5.21 4.50-6.20 MIL/uL Hemoglobin 14.1 14.0-18.0 g/dL Hematocrit 45.2 42-54 % Mean Corpuscular Volume 86.8 79-99 fL Mean Corpuscular Hemoglobin 27.1 27.0-33.0 pg Mean Corpuscular Hemoglobin Concent 31.2 L 32.0-36.0 g/dL Red Cell Distribution Width 13.3 11.0-15.5 % Platelet Count 171 130-400 K/uL Mean Platelet Volume 10.4 7.5-10.5 fL Nucleated Red Blood Cells 0.0 0.0-0.19 % Immature Granulocyte % (Auto) 0.5 0-1 % Neutrophils (%) (Auto) 70.4 40.0-77.0 % Lymphocytes (%) (Auto) 19.8 L 21.0-51.0 % Monocytes (%) (Auto) 6.2 3.0-13.0 % Eosinophils (%) (Auto) 2.4 0.0-8.0 % Basophils (%) (Auto) 0.7 0.0-5.0 % Neutrophils # (Auto) 8.7 H 1.8-7.7 K/uL Lymphocytes # (Auto) 2.5 1.0-4.8 K/uL Monocytes # (Auto) 0.8 0.1-1.0 K/uL Eosinophils # (Auto) 0.30 0.00-0.70 K/uL Basophils # (Auto) 0.09 0.00-0.20 K/uL Absolute Immature Granulocyte (auto 0.06 0-1 K/uL Erythrocyte Sedimentation Rate 18 0-20 MM/HR Chemistry Labs: Test 02/15/25 05:05 02/13/25 18:14 Range/Units Sodium Level 141 136-145 mmol/L Potassium Level 4.1 3.5-5.1 mmol/L Chloride Level 104 101-111 mmol/L Carbon Dioxide Level 30 21-32 mmol/L Blood Urea Nitrogen 11 7-18 mg/dL Creatinine 0.9 0.5-1.3 mg/dL Glomerular Filtration Rate Calc 94 >90 mL/min Random Glucose 103 70-105 mg/dL Total Calcium 8.6 8.5-10.1 mg/dL Magnesium Level 2.00 1.80-2.40 mg/dL Total Bilirubin 0.5 0.2-1.0 mg/dL Aspartate Amino Transf (AST/SGOT) 17 10-37 U/L Alanine Aminotransferase (ALT/SGPT) 35 12-78 U/L Alkaline Phosphatase 86 50-136 U/L Total Protein 7.3 6.0-8.3 g/dL Albumin 3.3 L 3.5-5.0 g/dL Total Creatine Kinase 112 # 21-232 U/L Troponin I High Sensitivity 5.2 4-75 ng/L C-Reactive Protein, Quantitative 6.10 H 0.5-3.0 mg/L Procalcitonin < 0.05 L 0.05-0.5 ng/mL DIAGNOSTICS / RADIOLOGY RESULTS: [ ] PLAN Pulmonology consultation was requested due to concern for untreated JOSELUIS/OHS. I am going to start the patient on CPAP at HS with inspiratory pressure 10 cm H2O and 40% FiO2. Because of the sudden onset respiratory distress and a minimally elevated D-dimer, we will request a CT of the chest PE protocol if not yet requested. We will await the 2D echo results. Cardiology was consulted and we will follow their input on further management. We will monitor the patient's progress and response to management. I discussed the findings and plan for further management with the patient. We will monitor the patient's progress and response to management. We will continue to provide general supportive care, GI and DVT prophylaxis. I appreciate the opportunity provided to participate in patient's care. Further orders per attending MD and hospital course. 02/14/2025: For now, going to continue current management for the patient. Currently, the patient remains on room air. There still remains concern for a possible obstructive sleep apnea. Recommend for the patient to follow up with pulmonology Dr. Yasmine De Leon in the outpatient setting. Considering the patient does not require any further critical care interventions and respiratory zarate has maintained stable, the patient can be discharged from the pulmonary standpoint. Thank you for allowing us to participate in patient care. 02/14/2025: For now, going to continue current management for the patient. Again, recommend for the patient to follow up with pulmonology Dr. Yasmine De Leon in the outpatient setting. Considering the patient does not require any further critical care interventions and respiratory zarate has maintained stable, the patient can be discharged from the pulmonary standpoint. Thank you for allowing us to participate in patient care. NEURO: Minimize central acting medications as possible. Maintain fall precautions, adequate lighting during the day PULMONARY: Supplemental 02 as needed. Maintain aspiration precautions at all times CARDIOVASCULAR: Follow hemodynamics. Vital signs per facility protocol GI & NUTRITION: Continue with nutritional support. Continue stool softeners and laxatives as needed. KIDNEYS & ELECTROLYTES: Strict monitoring of intake, output and overall fluid balance. Avoid nephrotoxic medications to the extent possible. Medications to be dosed according to renal function. Monitor electrolytes and replace as needed ENDOCRINE: Maintain blood glucose between 100-180 at all times. Hypoglycemia protocol in place INFECTIOUS DISEASE: Trend temperature, WBC and procalcitonin level Follow cultures, deescalate antibiotics as soon as possible. Panculture if new onset fever ONCOLOGY/HEMATOLOGY/COAGULATION: Monitor for s/s of bleeding Monitor hemoglobin, coagulation studies as needed SKIN: Pressure ulcer prevention per facility protocol Specialty mattress ORTHO/REHAB: Continue PT/OT Prophylaxis: Continue GI and DVT prophylaxis Code Status: Full Resuscitation Disposition: TBD Other: Patient was seen and case discussed with kenney HECTOR. Plan of care was discussed and agreed upon. SALLY GARCIA NP Feb 15, 2025 13:21
== END 2025-02-15 15:30 | disposition home or self-care (01) ==
LOC: EDH 06:51 → INTOOBSV 11:49 → EDHIP 11:49 → 2DH 21:13
PROVIDERS: ADMIT Internal Medicine; ATTEND Internal Medicine
DX: J96.00 Acute respiratory failure, unspecified whether with hypoxia or hypercapnia (principal); Z20.822 Contact with and (suspected) exposure to COVID-19; R79.1 Abnormal coagulation profile; R07.89 Other chest pain; E66.01 Morbid (severe) obesity due to excess calories; G47.33 Obstructive sleep apnea (adult) (pediatric); D72.829 Elevated white blood cell count, unspecified; R60.0 Localized edema; E78.00 Pure hypercholesterolemia, unspecified; I20.0 Unstable angina; I11.0 Hypertensive heart disease with heart failure; I50.9 Heart failure, unspecified; Z68.43 Body mass index [BMI] 50.0-59.9, adult; Z79.899 Other long term (current) drug therapy
CPT/HCPCS: 96374; 99285; 82550 ×2; 80076; 83735 ×3; 84484 ×3; 80048; 83880; 85025 ×2; 85378; 85610; 85730; 85651; 87804 ×2; 86140; 36415 ×3; 87635; 71045; 71270; 93306; 93356; 93970; 93005; 94664; 84145; 96372 ×2; 80053 ×2; 93017; 78452; 94660 ×2; 85027; 94640; J1938; Q9967; G0378 ×25; J1650 ×2; A9500 ×2; 76376